=== PATIENT | male | born 1990 | race African-American/Black ===

== ENCOUNTER 2017-04-23 19:25 | Emergency (ER) | payer OTHER ==
[2017-04-23 19:33] VITALS: BMI 32.5
--- NOTE | 2017-04-23 19:41 | PDOC ---
History of Present Illness - General History Source: Patient, Spouse Exam Limitations: No Limitations - History of Present Illness Initial Comments: 04/23/17 20:04 The patient is a 26 year old male, with a significant past medical history of hypertension(childhood), who presents to the emergency department with a headache for approximately 5 days. Patient reports the headache is left sided. He reports his headache is intermittent in nature, and over the past couple of days has resolved on its own. However, today, the patient reports his headache has been constant and has not resolved after taking Tylenol or Advil. Patient reports his hypertension has not been managed since he was 17-18. He denies any fever, chills, dizziness, lightheadedness, weakness or changes in vision. He denies any chest pain, shortness of breath, diaphoresis, or palpitations. He denies any abdominal pain, nausea, vomiting, diarrhea, constipation, or changes in urination patterns. As per , patient has been eating a lot of fast food. Allergies: NKDA Past Surgical History: None reported. Social History: Non smoker. No ETOH or recreational drug use. Family History: Mother: hypertension; Father: hypertension. <Greg Castellano - Last Filed: 04/23/17 20:04> <Doris Calle - Last Filed: 04/23/17 21:30> - General Chief Complaint: Headache Stated Complaint: HEADACHE Time Seen by Provider: 04/23/17 19:41 Past History <Greg Castellano - Last Filed: 04/23/17 20:04> - Past Medical History HTN: Yes - Suicide/Smoking/Psychosocial Hx Smoking History: Never smoked <Doris Calle - Last Filed: 04/23/17 21:30> - Past Medical History Allergies/Adverse Reactions: Allergies Allergy/AdvReac Type Severity Reaction Status Date / Time No Known Allergies Allergy Verified 04/23/17 19:32 Home Medications: Ambulatory Orders Valsartan [Diovan] 40 mg PO DAILY #30 tablet 04/23/17 Valsartan [Diovan] 40 mg PO DAILY 30 Days 04/23/17 Review of Systems - Review of Systems Able to Perform ROS?: Yes Comments:: 04/23/17 20:04 GENERAL/CONSTITUTIONAL: No fever or chills. No weakness. HEAD, EYES, EARS, NOSE AND THROAT: No change in vision. No ear pain or discharge. No sore throat. CARDIOVASCULAR: No chest pain or shortness of breath. RESPIRATORY: No cough, wheezing, or hemoptysis. GASTROINTESTINAL: No nausea, vomiting, diarrhea or constipation. GENITOURINARY: No dysuria, frequency, or change in urination. MUSCULOSKELETAL: No joint or muscle swelling or pain. No neck or back pain. SKIN: No rash NEUROLOGIC: Yes headache. No vertigo, loss of consciousness, or change in strength/sensation. ENDOCRINE: No increased thirst. No abnormal weight change. HEMATOLOGIC/LYMPHATIC: No anemia, easy bleeding, or history of blood clots. ALLERGIC/IMMUNOLOGIC: No hives or skin allergy. <Greg Castellano - Last Filed: 04/23/17 20:04> *Physical Exam - Vital Signs Last Vital Signs Temp Pulse Resp BP Pulse Ox 99.6 F 109 H 20 149/92 99 04/23/17 19:29 04/23/17 19:29 04/23/17 19:29 04/23/17 19:29 04/23/17 19:29 - Physical Exam Comments: 04/23/17 20:04 GENERAL: The patient is awake, alert, and fully oriented, in no acute distress. HEAD: Normal with no signs of trauma. EYES: Pupils equal, round and reactive to light, extraocular movements intact, sclera anicteric, conjunctiva clear with no pallor. ENT: Ears normal, nares patent, oropharynx clear without exudates. Moist mucous membranes. NECK: Normal range of motion, supple without lymphadenopathy, JVD, or masses. LUNGS: Breath sounds equal, clear to auscultation bilaterally. No wheeze/ crackles. HEART: Regular rate and rhythm, normal S1 and S2 without murmur or rub. ABDOMEN: Soft/nontender/nondistended. BS wnl. No guarding or rebound. No palpable masses. No hepatosplenomegaly. EXTREMITIES: Normal range of motion, no edema. No clubbing or cyanosis. No cords, erythema, or tenderness. NEUROLOGICAL: Cranial nerves II through XII grossly intact. Normal speech, normal gait. Motor strength 5/5 bilateral upper and lower extremities. PSYCH: Normal mood, normal affect. SKIN: Warm, Dry, normal turgor, no rashes or lesions noted. <Greg Castellano - Last Filed: 04/23/17 20:04> - Vital Signs Last Vital Signs Temp Pulse Resp BP Pulse Ox 99.6 F 109 H 20 149/92 99 04/23/17 19:29 04/23/17 19:29 04/23/17 19:29 04/23/17 19:29 04/23/17 19:29 <Doris Calle - Last Filed: 04/23/17 21:30> Medical Decision Making - Medical Decision Making 04/23/17 21:00 Pt has had HTN since the age of 11, but he has been noncompliant with HTN meds x several years. Today he comes with HTN and a headache. He has no chest pain and he states that not only is he non compliant with HTN meds, he regularly eats junk food, icelandic food and pizza, fast foods. He will be started on a bP med by myself and he will be asked to follow with clinic or PMD. Exam is normal. EKG is NSR. Pt's headache is better and he will not require any imaging at this time. Pt will also not require labs at this time. EKG and exam are normal. He is stable for outpatient follow up. <Doris Calle - Last Filed: 04/23/17 21:30> *DC/Admit/Observation/Transfer - Attestations Scribe Attestion: 04/23/17 20:05 Documentation prepared by Greg Castellano, acting as forensic medical examiner for Doris Calle MD. <Greg Castellano - Last Filed: 04/23/17 20:04> - Discharge Dispostion Admit: Yes <Doris Calle - Last Filed: 04/23/17 21:30> Diagnosis at time of Disposition: Diabetes mellitus, new onset, Tachycardia, Drug abuse - Discharge Dispostion Disposition: HOME Condition at time of disposition: Improved - Prescriptions Prescriptions: Valsartan [Diovan] 40 mg PO DAILY 30 Days - Patient Instructions Printed Discharge Instructions: Treatments for High Blood Pressure: More Than Just Taking a Pill, High Blood Pressure
[2017-04-23] MEDS ORDERED: VALSARTAN 40 MG TABLET (FP) PO ONE (19:58)
[2017-04-23 21:22] VITALS: BP 146/93; PULSE 94; TEMP 98.1
--- NOTE | 2017-04-24 13:05 | EKG ---
Test Reason : Blood Pressure : / mmHG Vent. Rate : 097 BPM Atrial Rate : 097 BPM P-R Int : 156 ms QRS Dur : 074 ms QT Int : 318 ms P-R-T Axes : 036 010 031 degrees QTc Int : 403 ms NORMAL SINUS RHYTHM NON-SPECIFIC CHANGE IN ST SEGMENT IN V2, ATYPIACL BRUGADA PATTERN BORDERLINE ECG NO PREVIOUS ECGS AVAILABLE CLINICAL CORRELATION IS RECOMMENDED Confirmed by HILLARY BILL, ТАТЬЯНА ([id number]) on 04/24/2017 1:05:42 PM Referred By: Confirmed By:ТАТЬЯНА THORNTON MD
== END 2017-04-23 21:23 | disposition home or self-care (01) ==
LOC: JER 19:25 → JERBED 20:55 → UNDOADMOB 20:55
DX: I10 Essential (primary) hypertension (principal); Z91.14 Patient's other noncompliance with medication regimen
CPT/HCPCS: 93005; 93010; 99282-25

== ENCOUNTER 2017-09-22 11:19 | Emergency (ER) | payer OTHER ==
[2017-09-22 11:41] VITALS: BP 151/104; PULSE 100; TEMP 98.2; BMI 33.2
--- NOTE | 2017-09-22 11:42 | PDOC ---
Rapid Medical Evaluation Chief Complaint: Blood Pressure Problem Time Seen by Provider: 09/22/17 11:36 Medical Evaluation: Allergies Allergy/AdvReac Type Severity Reaction Status Date / Time No Known Allergies Allergy Verified 09/22/17 11:36 09/22/17 11:37 pt states he went for screening yesterday, bp was high instructed to have 3 consecutive days of bp reading, on valsarton
--- NOTE | 2017-09-22 11:45 | PDOC ---
History of Present Illness - General Chief Complaint: Blood Pressure Problem Stated Complaint: ELEVATED BP Time Seen by Provider: 09/22/17 11:36 History Source: Patient Exam Limitations: No Limitations - History of Present Illness Initial Comments: 09/22/17 11:44 pt states he went for screening yesterday, bp was high instructed to have 3 consecutive days of bp reading, on valsarton 09/22/17 11:42 pt has no other complaints. no headache or chest pain alert and oriented pupils equal and reactive pharynx clear neck supple chest clear/equal, rr neuro intact, no asymmetry, no ataxia, ambulator no focal deficits Past History - Past Medical History Allergies/Adverse Reactions: Allergies Allergy/AdvReac Type Severity Reaction Status Date / Time No Known Allergies Allergy Verified 09/22/17 11:36 Home Medications: Ambulatory Orders Valsartan [Diovan] 40 mg PO DAILY #30 tablet 04/23/17 Valsartan [Diovan] 40 mg PO DAILY 30 Days tablet 04/23/17 COPD: No HTN: Yes - Suicide/Smoking/Psychosocial Hx Smoking History: Never smoked Review of Systems - Review of Systems Constitutional: Yes: See HPI. No: Fever HEENTM: No: Recent change in vision, Double Vision Respiratory: No: Orthopnea, Shortness of Breath, SOB with Exertion Cardiac (ROS): No: Chest Pain, Edema, Lightheadedness ABD/GI: Yes: See HPI : No: Dysuria, Urgency Musculoskeletal: No: Back Pain, Joint Pain, Neck Pain Neurological: No: Headache, Numbness, Paresthesia, Ataxia Endocrine: No: Increased Thirst, Increased Urine *Physical Exam - Vital Signs Last Vital Signs Temp Pulse Resp BP Pulse Ox 98.2 F 100 H 19 151/104 99 09/22/17 11:37 09/22/17 11:37 09/22/17 11:37 09/22/17 11:37 09/22/17 11:37 Medical Decision Making - Medical Decision Making 09/22/17 11:51 pt with asymptomatic htn. on meds. no indication for further eval or management today. to follow up with pmd. pt says he will take care of *DC/Admit/Observation/Transfer Diagnosis at time of Disposition: Asymmetric blood pressures - Discharge Dispostion Disposition: HOME Condition at time of disposition: Stable Admit: No - Referrals - Patient Instructions Printed Discharge Instructions: DI for High Blood Pressure Additional Instructions: follow up with your doctor by tomorrow for further return to er if you have any physical complaints, including headache, chest pain , shortness of breath, nausea, numbness - Post Discharge Activity
== END 2017-09-22 11:57 | disposition home or self-care (01) ==
LOC: JERFT 11:19
DX: Z01.30 Encounter for examination of blood pressure without abnormal findings (principal)
CPT/HCPCS: 99281-25

== ENCOUNTER 2019-05-01 22:19 | Emergency (ER) | payer OTHER ==
[2019-05-01 22:24] VITALS: TEMP 98.3; BMI 31.0
[2019-05-02] MEDS ORDERED: ACETAMINOPHEN 1000 MG/100 ML VIAL (NON FORMULARY) IVPB ONE (00:45)
[2019-05-02] MEDS ORDERED: ACETAMINOPHEN 325 MG TABLET (FP) ONE (01:05)
--- NOTE | 2019-05-02 01:07 | PDOC ---
Documentation entered by Sparkle Burgess SCRIBE, acting as scribe for Pastora Puente MD. Pastora Puente MD: This documentation has been prepared by the Jenifer sanz Brenda, SCRIBE, under my direction and personally reviewed by me in its entirety. I confirm that the documentation accurately reflects all work, treatment, procedures, and medical decision making performed by me. Attending Attestation - Resident Resident Name: Francisco Carias - ED Attending Attestation I have performed the following: I have examined & evaluated the patient, The case was reviewed & discussed with the resident, I agree w/resident's findings & plan, Exceptions are as noted - HPI HPI: 05/02/19 01:03 The patient is a 28 year old male, with a significant PMH of HTN (diagnosed at 11) who presents to the emergency department with substernal chest pressure, which started at around 2:00pm. The patient also endorses a headache that radiates from the top of his head to his occipital area. Patient states taking tyelenol 10 hours ago The patient denies chest pain, shortness of breath and dizziness. Denies fever, chills, nausea, vomiting, diarrhea and constipation. Denies visual changes, ataxia and weakness. Denies dysuria, frequency, urgency and hematuria. Allergies: NKA Past surgical history: None reported Family History: HTN Social history: Denies any tobacco use, alcohol use, or illicit drug use. PCP: [facility] - Physicial Exam PE: 05/02/19 01:03 GENERAL: Well-appearing, well-nourished. No apparent distress. HEENT: Normocephalic, atraumatic. PERRL, EOM intact. CARDIOVASCULAR: Normal S1, S2. Regular rate and rhythm. PULMONARY: Clear to auscultation bilaterally. ABDOMEN: Soft, non-distended, non-tender. EXTREMITIES: Normal ROM in all four extremities. No gross deformities. SKIN: Warm, dry. No rash NEUROLOGICAL: No focal neurological deficits. - Medical Decision Making 05/02/19 01:21 Chest x-ray normal cardiac silhouette, no effusions, no consolidations, no infiltrates no pneumothorax EKG normal sinus rhythm at 96 bpm, QTC is 424 ms, No significant ekg changes since his prior ekg done on January 25 2018 05/02/19 01:54 repeat BP= 142/80 05/02/19 02:18 his troponin is negative
[2019-05-02 01:43] LABS: BASO % 0.6 % (0-2.0); EOS % 0.8 % (0-4.5); HEMATOCRIT 43.1 % (35.4-49); HEMOGLOBIN 14.3 GM/dL (11.7-16.9); LYMPH % 38.3 % (8-40); MCH 31.4 pg (25.7-33.7); MCHC 33.2 g/dl (32.0-35.9); MEAN CELL VOLUME 94.5 fl (80-96); MEAN PLT VOLUME 8.6 fl (7.5-11.1); NEUT % 53.3 % (42.8-82.8); PLATELET COUNT 247 K/MM3 (134-434); RBC 4.56 M/mm3 (4.00-5.60); RDW 12.7 % (11.9-15.9); WHITE BLOOD COUNT 6.5 K/mm3 (4.0-10.0)
--- NOTE | 2019-05-02 01:50 | PDOC ---
History of Present Illness - General Chief Complaint: Chest Pain Stated Complaint: CHEST PAIN,HEADACHE Time Seen by Provider: 05/02/19 00:06 History Source: Patient Exam Limitations: No Limitations - History of Present Illness Initial Comments: 05/03/19 19:16 HPI: 28M PMH HTN c/o 1 day of chest pain and headache. Chest pain is substernal, nonradiating, and constant; has decreased in severity since onset at 3pm. Described as both pain and heaviness. Has a superior-occipital throbbing headache. Pt has had similar episode one year ago and states chest pain and headache are the same as prior. Denies shortness of breath, recent illness, sick contacts, f/c, abd pain, n/v/d, and ilicit drug use. No changes in vision/ hearing, lightheadedness, dizziness, numbness, tingling, or weakness. No trauma or falls. Pt states he had an ECHO last year that was normal. NKDA Denies smoking + occasional etoh Denies ilicit drug use including cocaine Past History - Past Medical History Allergies/Adverse Reactions: Allergies Allergy/AdvReac Type Severity Reaction Status Date / Time No Known Allergies Allergy Verified 01/25/18 00:53 Home Medications: Ambulatory Orders Amlodipine Besylate [Norvasc -] 5 mg PO DAILY 01/25/18 Valsartan 160 mg PO HS 01/25/18 COPD: No HTN: Yes - Immunization History Immunization Up to Date: Yes - Psycho Social/Smoking Cessation Hx Smoking History: Never smoked Have you smoked in the past 12 months: No Hx Alcohol Use: No Drug/Substance Use Hx: No Substance Use Type: None Review of Systems - Review of Systems Able to Perform ROS?: Yes Comments:: 05/03/19 19:16 ROS: CONSTITUTIONAL: Denies F / C HEENT: Endorese headache. Denies lightheadedness, dizziness, changes in vision / hearing, diplopia, blurry vision. Denies sore throat, rhinorrhea. RESP: Denies SOB, cough, orthopnea, DALE CARD: Endorses chest pain. GI: Denies N / V / D, abdominal pain, bloody stool, inability to tolerate PO : Denies dysuria, hematuria, frequency SKIN: Denies rashes NEURO: Denies numbness, tingling, weakness Is the patient limited French proficient: No *Physical Exam - Vital Signs Last Vital Signs Temp Pulse Resp BP Pulse Ox 98.3 F 79 18 148/94 100 05/01/19 22:21 05/02/19 00:44 05/02/19 00:44 05/02/19 00:44 05/02/19 00:44 - Physical Exam Comments: 05/03/19 19:16 PE: GEN: Well appearing, NAD, comfortable. AAOx3 HEENT: NC/AT, CN II-XII, EOMI, PERRLA. No facial asymmetry. Moist mucous membranes. Normal voice. Supple neck w/ FROM. CV: +TTP on sternum. No obvious deformities. S1/S2, RRR, no m/r/g LUNG: CTAB, no wheezes, crackles, rales, rhonchi. GI: soft, ndnt, +BS, no guarding, no rebound. No masses. EXTREMITIES: 2+ distal pulses. No LE edema. No obvious deformities of all extremities. SKIN: warm, dry, normal turgor. No rashes or vesicles. PSYCH: normal mood and affect NEURO: Moving all extremities well. ED Treatment Course - LABORATORY CBC & Chemistry Diagram: 05/02/19 01:36 05/02/19 01:36 - RADIOLOGY Radiology Studies Ordered: Category Date Time Status CHEST PA & LAT [RAD] Stat Radiology 05/02/19 00:45 Taken Medical Decision Making - Medical Decision Making 05/02/19 01:43 MDM: 28M w/ reproducible chest pain and headache. DDx - msk, acs, pericarditis - CBC, CMP, Cardiac - tylenol - EKG - CXR if trop neg dc home signed out to PM team Discharge - Discharge Information Problems reviewed: Yes Clinical Impression/Diagnosis: Chest pain Qualifiers: Chest pain type: unspecified Qualified Code(s): R07.9 - Chest pain, unspecified Condition: Stable Disposition: HOME - Follow up/Referral Referrals: Albina Mccabe MD [Primary Care Provider] - - Patient Discharge Instructions Patient Printed Discharge Instructions: DI for Chest Pain Additional Instructions: FOLLOW UP WITH YOUR PRIMARY CARE DOCTOR IN THE NEXT 1 DAY REGARDING THIS VISIT. Take tylenol as directed on the bottle for the headache. IMMEDIATELY return to the Emergency Department if you experience: - worsening symptoms - shortness of breath - ANYTHING that concerns you - Post Discharge Activity
--- NOTE | 2019-05-02 02:11 | PDOC ---
*Physical Exam - Vital Signs Last Vital Signs Temp Pulse Resp BP Pulse Ox 98.3 F 79 18 148/94 100 05/01/19 22:21 05/02/19 00:44 05/02/19 00:44 05/02/19 00:44 05/02/19 00:44 ED Treatment Course - LABORATORY CBC & Chemistry Diagram: 05/02/19 01:36 05/02/19 01:36 - ADDITIONAL ORDERS Additional order review: 05/02/19 01:36 RBC 4.56 MCV 94.5 MCHC 33.2 RDW 12.7 MPV 8.6 Neutrophils % 53.3 Lymphocytes % 38.3 Monocytes % 7.0 Eosinophils % 0.8 Basophils % 0.6 - Medications Given in the ED: ED Medications Discontinued Medications Generic Name Dose Route Start Last Admin Trade Name Trace PRN Reason Stop Dose Admin Acetaminophen 1,000 mg 05/02/19 00:45 05/02/19 01:49 Ofirmev Injection - IVPB 05/02/19 00:46 1,000 mg ONCE ONE Administration Medical Decision Making - Medical Decision Making 05/02/19 02:08 Signed out to me by Dr. Carias. Complaining of chest pressure at 3AM yesterday, BESS from top of head to back, no N/V, no neuro deficits. 2 months ago changed BP meds. 2 years ago same presentation. Waiting on initial troponin sent earlier, would have peaked by now. If negative can send home. [] trop [] dispo 05/02/19 04:02 Patient's troponin negative. Reviewed discharge summary. Will discharge home as per plan. Discharge - Discharge Information Problems reviewed: Yes Clinical Impression/Diagnosis: Chest pain Qualifiers: Chest pain type: unspecified Qualified Code(s): R07.9 - Chest pain, unspecified Condition: Stable Disposition: HOME - Follow up/Referral Referrals: Albina Mccabe MD [Primary Care Provider] - - Patient Discharge Instructions Patient Printed Discharge Instructions: DI for Chest Pain Additional Instructions: FOLLOW UP WITH YOUR PRIMARY CARE DOCTOR IN THE NEXT 1 DAY REGARDING THIS VISIT. Take tylenol as directed on the bottle for the headache. IMMEDIATELY return to the Emergency Department if you experience: - worsening symptoms - shortness of breath - ANYTHING that concerns you - Post Discharge Activity
[2019-05-02 02:13] LABS: ALBUMIN 4.1 g/dl (3.4-5.0); ALK PHOS 76 U/L (45-117); ANION GAP 4 MMOL/L (8-16); BILIRUBIN,TOTAL 0.8 mg/dL (0.2-1); BLOOD UREA NITROGEN 10.8 mg/dL (7-18); CALCIUM 9.6 mg/dL (8.5-10.1); CHLORIDE 104 mmol/L (98-107); CO2 31 mmol/L (21-32); GLUCOSE,RANDOM 103 mg/dL (74-106); POTASSIUM 4.4 mmol/L (3.5-5.1); SGOT/AST 22 U/L (15-37); SGPT/ALT 89 U/L (13-61); SODIUM 139 mmol/L (136-145); TOT PROT 7.5 g/dl (6.4-8.2)
[2019-05-02 03:02] VITALS: BP 140/83; PULSE 75
--- NOTE | 2019-05-02 11:05 | EKG ---
Test Reason : Blood Pressure : / mmHG Vent. Rate : 096 BPM Atrial Rate : 096 BPM P-R Int : 158 ms QRS Dur : 086 ms QT Int : 336 ms P-R-T Axes : 012 039 011 degrees QTc Int : 424 ms NORMAL SINUS RHYTHM POSSIBLE LEFT ATRIAL ENLARGEMENT BORDERLINE ECG WHEN COMPARED WITH ECG OF 25-JAN-2018 00:47, T WAVE INVERSION NOW EVIDENT IN INFERIOR LEADS Confirmed by Danielito Durand MD ([id number]) on 05/02/2019 11:04:42 AM Referred By: Confirmed By:Danielito Durand MD
== END 2019-05-02 03:02 | disposition home or self-care (01) ==
LOC: JER 22:19
PROC: 3E033NZ Introduction of Analgesics, Hypnotics, Sedatives into Peripheral Vein, Percutaneous Approach (ICD-10-PCS; principal; 2019-05-01)
DX: R07.9 Chest pain, unspecified (principal); I10 Essential (primary) hypertension
CPT/HCPCS: 36415; 71046-TC-FY; 80053; 82550; 82553; 84484; 85025; 93005; 93010; 96374; 99283-25; J0131

== ENCOUNTER 2020-08-13 09:51 | Emergency (ER) | payer OTHER ==
[2020-08-13 10:08] VITALS: TEMP 98.4; BMI 33.2
[2020-08-13 11:14] LABS: BASO % 0.8 % (0-2.0); EOS % 2.9 % (0-4.5); HEMOGLOBIN 14.7 GM/dL (11.7-16.9); LYMPH % 53.2 % (8-40); MCH 31.5 pg (25.7-33.7); MCHC 34.3 g/dl (32.0-35.9); MEAN CELL VOLUME 91.9 fl (80-96); MEAN PLT VOLUME 8.4 fl (7.5-11.1); MONO % 8.4 % (3.8-10.2); NEUT % 34.7 % (42.8-82.8); PLATELET COUNT 264 K/MM3 (134-434); RBC 4.68 M/mm3 (4.00-5.60); RDW 12.6 % (11.9-15.9); WHITE BLOOD COUNT 4.2 K/mm3 (4.0-10.0)
[2020-08-13] MEDS ORDERED: amLODIPine BESYLATE 5 MG TABLET (FP) PO ONE (11:35)
[2020-08-13] MEDS ORDERED: VALSARTAN 160 MG TABLET PO ONE (11:35)
[2020-08-13] MEDS ORDERED: amLODIPine BESYLATE 2.5 MG TABLET (FP) ONE (11:37)
[2020-08-13] MEDS ORDERED: VALSARTAN 80 MG TABLET ONE (11:37)
[2020-08-13 11:41] LABS: CHLORIDE 104 mmol/L (98-107); POTASSIUM 4.1 mmol/L (3.5-5.1); SODIUM 140 mmol/L (136-145)
[2020-08-13 11:43] LABS: CALCIUM 9.9 mg/dL (8.5-10.1)
[2020-08-13 11:44] LABS: ANION GAP 4 MMOL/L (8-16); BLOOD UREA NITROGEN 9.4 mg/dL (7-18); CO2 32 mmol/L (21-32); GLUCOSE,RANDOM 104 mg/dL (74-106)
[2020-08-13 11:47] LABS: SGOT/AST 60 U/L (15-37); SGPT/ALT 180 U/L (13-61)
[2020-08-13 11:48] LABS: BILIRUBIN,TOTAL 0.8 mg/dL (0.2-1); TOT PROT 7.7 g/dl (6.4-8.2)
[2020-08-13 11:50] LABS: ALK PHOS 88 U/L (45-117)
[2020-08-13 12:59] VITALS: BP 140/100; PULSE 90
== END 2020-08-13 14:00 | disposition home or self-care (01) ==
LOC: JER 09:51
DX: R07.9 Chest pain, unspecified (principal)
CPT/HCPCS: 36415; 71046-TC-FY; 80053; 84484; 85025; 93005; 93010; 99285-25

== ENCOUNTER 2020-09-17 12:02 | Emergency (ER) | payer OTHER ==
[2020-09-17 12:17] VITALS: BP 145/92; PULSE 104; TEMP 97.9; BMI 32.5
== END 2020-09-17 12:47 | disposition home or self-care (01) ==
LOC: JERFT 12:02
DX: Z76.0 Encounter for issue of repeat prescription (principal)
CPT/HCPCS: 99281-25